=== PATIENT | male | born 1940 | race Caucasian/White ===

== ENCOUNTER 2020-09-11 20:28 | Inpatient (IN) | payer MEDICARE ==
[~2020-09-11] VITALS: Ht 182.9 cm; Wt 105.9 kg
[2020-09-11 21:11] LABS: BASOPHILS % (AUTO) 0.6 % (0.0-5.0); EOSINOPHILS % (AUTO) 4.1 % (0.0-8.0); LYMPHOCYTES % (AUTO) 17.8 % (21.0-51.0); MEAN CORPUSCULAR HEMOGLOBIN 35.7 pg (27.0-33.0); MEAN CORPUSCULAR HGB CONC 33.8 g/dL (32.0-36.0); MEAN CORPUSCULAR VOLUME 105.7 fL (79-99); MONOCYTES % (AUTO) 9.5 % (3.0-13.0); NEUTROPHILS % (AUTO) 67.4 % (40.0-77.0); PLATELET COUNT (AUTO) 230 K/uL (130-400); RED CELL DISTRIBUTION WIDTH 13.9 % (11.0-15.5); WHITE BLOOD COUNT (AUTO) 9.3 K/uL (4.8-10.8)
[2020-09-11 21:21] LABS: POTASSIUM 4.9 mmol/L (3.5-5.1)
[2020-09-11 21:25] LABS: INR 1.39 (0.85-1.15); PROTHROMBIN TIME 14.4 SEC (9.6-11.6)
[2020-09-11 21:27] LABS: PARTIAL THROMBOPLASTIN TIME 36.2 SEC (26.3-35.5)
[2020-09-11 21:34] LABS: ALBUMIN 3.4 g/dL (3.5-5.0); BILIRUBIN,TOTAL 0.4 mg/dL (0.2-1.0); MAGNESIUM 1.3 mg/dL (1.80-2.40); THYROID STIMULATING HORMONE 5.47 uIU/mL (0.36-3.74); TOTAL PROTEIN, SERUM 7.3 g/dL (6.0-8.3)
[2020-09-11 21:42] LABS: APPEARANCE,URINE SL CLOUDY (CLEAR); BILIRUBIN,URINE SMALL (NEGATIVE); COLOR,URINE YELLOW (YELLOW); GLUCOSE, URINE (UA) 100 mg/dL (NEGATIVE); KETONES,URINE 5 mg/dL (NEGATIVE); LEUKOCYTE ESTERASE ,URINE NEGATIVE (NEGATIVE); NITRATE,URINE NEGATIVE (NEGATIVE); OCCULT BLOOD,URINE NEGATIVE (NEGATIVE); PROTEIN,URINE TRACE mg/dL (NEGATIVE); UROBILINOGEN,URINE 0.2 mg/dL (0.2-1.0)
[2020-09-11 21:48] LABS: BACTERIA,URINE Moderate /HPF (None Seen); RBC,URINE 0-1 /HPF (0-1); WBC,URINE 0-1 /HPF (0-1)
[2020-09-11 21:49] LABS: MUCUS,URINE Rare LPF (None Seen)
[2020-09-11 21:50] LABS: SQUAMOUS EPITHELIAL CELL,UR Few /HPF (0-2)
[2020-09-11] MEDS ORDERED: MAGNESIUM OXIDE 400 MG TABLET PO ONE (22:23)
[2020-09-11] MEDS ORDERED: NITROGLYCERIN 0.4 MG SL TAB SL PRN (22:30)
[2020-09-11] MEDS ORDERED: ACETAMINOPHEN 325 MG TAB PO PRN ×2 (22:30)
[2020-09-11] MEDS ORDERED: ONDANSETRON 4MG INJ IV PRN (22:30)
[2020-09-11] MEDS ORDERED: DEXTROSE 50%-WATER 50 ML DISP.SYRIN IV PRN (23:00)
[2020-09-11] MEDS ORDERED: GLUCAGON 1MG KIT 1 MG ML IM PRN (23:00)
[2020-09-12 02:00] VITALS: BP 159/86
[2020-09-12] MEDS ORDERED: DILT240T13 PO (02:23)
[2020-09-12] MEDS ORDERED: ASPI-1012 PO (02:23)
[2020-09-12] MEDS ORDERED: FURO20TA4 PO (02:29)
[2020-09-12] MEDS ORDERED: GABA600T10 PO (02:29)
[2020-09-12] MEDS ORDERED: OMEP20TA25 PO (02:29)
[2020-09-12] MEDS ORDERED: METF-446 PO (02:29)
[2020-09-12] MEDS ORDERED: METO50TA18 PO (02:29)
[2020-09-12] MEDS ORDERED: RIVA20TA PO (02:29)
[2020-09-12 03:37] VITALS: BP 159/71
[2020-09-12 04:56] LABS: BASOPHILS % (AUTO) 0.4 % (0.0-5.0); EOSINOPHILS % (AUTO) 5.7 % (0.0-8.0); HEMATOCRIT 34.8 % (42-54); LYMPHOCYTES % (AUTO) 18.8 % (21.0-51.0); MEAN CORPUSCULAR HEMOGLOBIN 35.2 pg (27.0-33.0); MEAN CORPUSCULAR HGB CONC 33.6 g/dL (32.0-36.0); MEAN CORPUSCULAR VOLUME 104.8 fL (79-99); MONOCYTES % (AUTO) 9.4 % (3.0-13.0); NEUTROPHILS % (AUTO) 64.7 % (40.0-77.0); PLATELET COUNT (AUTO) 177 K/uL (130-400); RED BLOOD CELL COUNT(AUTO) 3.32 MIL/uL (4.50-6.20); RED CELL DISTRIBUTION WIDTH 13.6 % (11.0-15.5); WHITE BLOOD COUNT (AUTO) 6.8 K/uL (4.8-10.8)
[2020-09-12 05:16] LABS: CREATININE 2.3 mg/dL (0.5-1.5); MAGNESIUM 1.3 mg/dL (1.80-2.40); POTASSIUM 4.8 mmol/L (3.5-5.1)
[2020-09-12] MEDS: INSULIN HUMULIN R 100 UNIT/ML 3ML SQ SCH ×4 (05:38→23:10)
[2020-09-12] MEDS: MAGNESIUM 2GM PREMIX 50ML 50 ML IV PRN ×2 (07:10→13:26)
[2020-09-12] MEDS ORDERED: FLU VACC QS2020-21(6MOS UP)/PF 60 MCG/0.5 ML ML IM ONE ×2 (08:30→10:00)
[2020-09-12 08:46] VITALS: BP 150/72
[2020-09-12] MEDS ORDERED: FAMOTIDINE 20MG TAB PO SCH (09:00)
[2020-09-12] MEDS ORDERED: ATROPINE 0.4MG VIAL IJ PRN (10:15)
[2020-09-12] MEDS: FLU VACC QS2020-21(6MOS UP)/PF 60 MCG/0.5 ML ML IM SCH (11:00)
[2020-09-12 12:27] VITALS: BP 119/75
[2020-09-12] MEDS ORDERED: MAGNESIUM 2GM PREMIX 50ML 50 ML IV PRN (13:45)
[2020-09-12 14:11] LABS: HEMOGLOBIN A1C 6.2 % (4.0-6.0)
[2020-09-12 15:54] VITALS: BP 147/67
[2020-09-12 20:46] VITALS: BP 174/76
[2020-09-12] MEDS: GABAPENTIN 300 MG CAPSULE PO SCH (23:07)
[2020-09-13 00:08] VITALS: BP 164/93
[2020-09-13 04:20] VITALS: BP 148/72
[2020-09-13] MEDS: INSULIN HUMULIN R 100 UNIT/ML 3ML SQ SCH ×4 (06:41→21:40)
[2020-09-13] MEDS: PANTOPRAZOLE 40 MG TAB DR PO SCH (06:41)
[2020-09-13] MEDS: MAGNESIUM 2GM PREMIX 50ML 50 ML IV PRN (07:29)
[2020-09-13 08:05] VITALS: BP 172/82
[2020-09-13] MEDS: TAMSULOSIN HCL 0.4 MG CAP.ER.24H PO SCH (08:43)
[2020-09-13] MEDS: GABAPENTIN 300 MG CAPSULE PO SCH ×2 (08:43→21:38)
[2020-09-13] MEDS: FUROSEMIDE 20 MG TABLET PO SCH (08:44)
[2020-09-13] MEDS: ASPIRIN 325 MG TABLET PO SCH (09:00)
[2020-09-13] MEDS: RIVAROXABAN 20 MG TABLET PO SCH (09:00)
[2020-09-13 09:17] LABS: CREATININE 1.5 mg/dL (0.5-1.5); POTASSIUM 4.5 mmol/L (3.5-5.1)
[2020-09-13] MEDS: FLU VACC QS2020-21(6MOS UP)/PF 60 MCG/0.5 ML ML IM SCH (11:00)
[2020-09-13 12:11] VITALS: BP 132/64
[2020-09-13] MEDS: 0.9%NACL 1000ML 1,000 ML IV SCH (12:19)
[2020-09-13 16:59] VITALS: BP 124/83
[2020-09-13] MEDS ORDERED: HYDROXYZINE 10 MG TABLET PO PRN (17:15)
[2020-09-13] MEDS ORDERED: PHARMACY COMMUNICATION MISC SCH (17:15)
[2020-09-13] MEDS: METOPROLOL TARTRATE 50 MG TAB PO SCH ×2 (17:45→21:00)
[2020-09-13 20:32] LABS: MAGNESIUM 1.9 mg/dL (1.80-2.40); POTASSIUM 4.7 mmol/L (3.5-5.1)
[2020-09-13 20:37] VITALS: BP 157/88
[2020-09-13] MEDS: TRIAMCINOLONE ACETONIDE 0.1% CREAM 15GM TP SCH (21:38)
[2020-09-14 00:09] VITALS: BP 109/62
[2020-09-14] MEDS: 0.9%NACL 1000ML 1,000 ML IV SCH (03:23)
[2020-09-14 03:31] VITALS: BP 111/71
[2020-09-14 05:57] LABS: BASOPHILS % (AUTO) 0.7 % (0.0-5.0); EOSINOPHILS % (AUTO) 8.5 % (0.0-8.0); HEMATOCRIT 36.4 % (42-54); LYMPHOCYTES % (AUTO) 21.4 % (21.0-51.0); MEAN CORPUSCULAR HEMOGLOBIN 34.8 pg (27.0-33.0); MEAN CORPUSCULAR HGB CONC 33.5 g/dL (32.0-36.0); MEAN CORPUSCULAR VOLUME 103.7 fL (79-99); MONOCYTES % (AUTO) 10.7 % (3.0-13.0); PLATELET COUNT (AUTO) 218 K/uL (130-400); RED BLOOD CELL COUNT(AUTO) 3.51 MIL/uL (4.50-6.20); RED CELL DISTRIBUTION WIDTH 13.5 % (11.0-15.5); WHITE BLOOD COUNT (AUTO) 5.9 K/uL (4.8-10.8)
[2020-09-14 06:14] LABS: CREATININE 1.3 mg/dL (0.5-1.5); POTASSIUM 4.8 mmol/L (3.5-5.1)
[2020-09-14] MEDS: INSULIN HUMULIN R 100 UNIT/ML 3ML SQ SCH ×3 (06:43→16:26)
[2020-09-14] MEDS: PANTOPRAZOLE 40 MG TAB DR PO SCH (07:32)
[2020-09-14 08:13] VITALS: BP 142/76
[2020-09-14] MEDS: ASPIRIN 325 MG TABLET PO SCH (09:35)
[2020-09-14] MEDS: TAMSULOSIN HCL 0.4 MG CAP.ER.24H PO SCH (09:35)
[2020-09-14] MEDS: METOPROLOL TARTRATE 50 MG TAB PO SCH (09:35)
[2020-09-14] MEDS: FUROSEMIDE 20 MG TABLET PO SCH (09:35)
[2020-09-14] MEDS: RIVAROXABAN 20 MG TABLET PO SCH (09:36)
[2020-09-14] MEDS: GABAPENTIN 300 MG CAPSULE PO SCH (09:36)
[2020-09-14] MEDS: TRIAMCINOLONE ACETONIDE 0.1% CREAM 15GM TP SCH (09:40)
[2020-09-14] MEDS: FLU VACC QS2020-21(6MOS UP)/PF 60 MCG/0.5 ML ML IM SCH (11:00)
[2020-09-14 11:59] VITALS: BP 131/79
[2020-09-14 16:38] VITALS: BP 113/74
[2020-09-14] MEDS ORDERED: METOPROLOL TARTRATE 50 MG TAB PO SCH (21:00)
[2020-09-14] MEDS ORDERED: METOPROLOL TARTRATE 25 MG TAB PO SCH (21:00)
== END 2020-09-14 17:50 | disposition home or self-care (01) | DRG 682 ==
LOC: EDH 20:28 → EDHIP 22:27 → 4CH 09-12 01:44
PROVIDERS: ADMIT Internal Medicine; ATTEND Internal Medicine
DX: N17.9 Acute kidney failure, unspecified (principal); I50.33 Acute on chronic diastolic (congestive) heart failure; J96.01 Acute respiratory failure with hypoxia; I48.92 Unspecified atrial flutter; N13.8 Other obstructive and reflux uropathy; E83.42 Hypomagnesemia; E11.9 Type 2 diabetes mellitus without complications; G47.33 Obstructive sleep apnea (adult) (pediatric); E78.5 Hyperlipidemia, unspecified; I11.0 Hypertensive heart disease with heart failure; I25.10 Atherosclerotic heart disease of native coronary artery without angina pectoris; Z96.653 Presence of artificial knee joint, bilateral; R00.1 Bradycardia, unspecified; I48.91 Unspecified atrial fibrillation; R33.8 Other retention of urine; J44.9 Chronic obstructive pulmonary disease, unspecified; E78.00 Pure hypercholesterolemia, unspecified; N40.1 Benign prostatic hyperplasia with lower urinary tract symptoms; Z79.01 Long term (current) use of anticoagulants; Z87.891 Personal history of nicotine dependence; Z95.5 Presence of coronary angioplasty implant and graft; Z23 Encounter for immunization; Z88.0 Allergy status to penicillin; Z79.899 Other long term (current) drug therapy; Z83.3 Family history of diabetes mellitus; Z82.49 Family history of ischemic heart disease and other diseases of the circulatory system
CPT/HCPCS: 36415; 71045; 80048; 80053; 81001; 82550; 82948; 83036; 83735; 83880; 84132; 84439; 84443; 84481; 84484; 85025; 85610; 85730; 87088; 93005; 93306; 93356; 99291; G0378; J1815; J3475; J7030; Q2035

== ENCOUNTER → 2024-06-28 | Outpatient (CLI) | payer MEDICARE ==
[~2024-06-28] MED LIST: BALS60OI TP; CHLO15MO3 MM; FURO40TA7 PO; GABA-1405 PO; METO50 PO; OMEP20TA20 PO; PRED-775 PO; RIVA20TA PO
== END | disposition home or self-care (01) ==
LOC: RAH 13:27
PROVIDERS: ATTEND Internal Medicine Cardiovascular Disease
DX: I08.0 Rheumatic disorders of both mitral and aortic valves (principal); I11.9 Hypertensive heart disease without heart failure
CPT/HCPCS: 93306